=== PATIENT | male | born 1960 | race Caucasian/White ===

== ENCOUNTER 2018-12-21 12:54 | Emergency (ER) | payer OTHER ==
--- NOTE | 2018-12-21 13:18 | ED Physician Documentation ---
PD HPI SKIN - Stated complaint Stated Complaint: LFT FOOT INFECTION/SENT BY DOC - Chief complaint Chief Complaint: Ext Problem - History obtained from History obtained from: Patient - History of Present Illness Timing - onset: How many days ago (few) Timing - duration: Days (few) Timing - details: Gradual onset Location: LLE (tip of second toe.) Quality / character: Painful, Discolored (red with extension of the redness to base of the toe and dorsum of the foot.), Swelling, Draining (it did drain some day or two ago, but not since.) Associated symptoms: No: Fever, Myalgias Contributing factors: No: Recent illness Similar symptoms before: Has not had sx before Recently seen: Clinic (seen with redness at tip of toe initially, without apparent injury. Rx with Keflex and was not improved over several days. Seen yesterday again and added Bactrim. Worse today so referred to ER for further evaluation.) Review of Systems Constitutional: denies: Fever, Chills, Myalgias Neurologic: reports: Numbness (has some neuropathy of feet so not as much feeling in toes baseline.). denies: Generalized weakness, Focal weakness PD PAST MEDICAL HISTORY - Past Medical History Cardiovascular: None Respiratory: None Endocrine/Autoimmune: None - Past Surgical History Past Surgical History: No - Present Medications Home Medications: Ambulatory Orders Medication Instructions Recorded Confirmed Azithromycin [Zithromax] 250 mg PO DAILY #6 tablet 07/08/13 Mupirocin 1 applic TP TID #15 g 12/21/18 - Allergies Allergies/Adverse Reactions: Allergies Allergy/AdvReac Type Severity Reaction Status Date / Time No Known Drug Allergies Allergy Verified 07/08/13 12:25 - Living Situation Living Situation: reports: With spouse/s.o. Living Arrangement: reports: At home - Social History Does the pt smoke?: No Smoking Status: Never smoker Does the pt drink ETOH?: No Does the pt have substance abuse?: No - Immunizations Immunizations are current?: Yes - POLST Patient has POLST: No PD ED PE NORMAL - Vitals Vital signs reviewed: Yes - General General: Alert and oriented X 3, No acute distress, Well developed/nourished - Derm Derm: Normal color, Warm and dry - Extremities Extremities: Other (left 2nd toe with redness and some callous/swelling at side of tip, not really at corner of the nail. Does have thickened fungal toenail. There is redness and swelling with redness extending to base of toe and just onto dorsum of foot. ) Results - Vitals Vitals: Oxygen O2 Source Room air - Rads (name of study) left toes Radiology: Prelim report reviewed (no erosion seen. There is metalic FB just under skin in area of the infection. ) Procedures - FB removal FB location: Subcutaneous (left 2nd toe tip.) FB removal preparation: No: Local anesthesia-specify (he has less sensation and has callous in the spot, so able to pare down the skin without numbning. I did find the metallic FB and it was in area of some raw skin. No pus out so not getting a culture of it.) PD MEDICAL DECISION MAKING - ED course Complexity details: considered differential (seems skin infection, no really at nail corner. There is area of thickened skin c/w callous. Tender there with redness and some fluctuance underneath. FB seen on xray and then gotten out by debriding the area. ), d/w patient Departure - Departure Disposition: 01 Home, Self Care Clinical Impression: Toe infection, Skin foreign body Cellulitis Qualifiers: Site of cellulitis: extremity Site of cellulitis of extremity: lower extremity Laterality: left Qualified Code(s): L03.116 - Cellulitis of left lower limb Condition: Stable Record reviewed to determine appropriate education?: Yes Instructions: ED Infec Skin Cellulitis Follow-Up: Koko Garcia MD [Primary Care Provider] - Prescriptions: Mupirocin 1 applic TP TID #15 g Comments: Soak the foot and toe couple times a day and use mupirocin topical antibiotic to the area. Continue with the oral antibiotics you had been prescribed. I think the infection will improve better now with it able to drain better and with that callus in the little piece of metal out. He should see improvement over the next few days. Return if worsening over the next couple of days. Forms: Activity restrictions Discharge Date/Time: 12/21/18 16:57
[2018-12-21] MEDS ORDERED: VANCOMYCIN INJ 1,000 GM in SODIUM CHLORIDE 0.9% 500 ML IV STA (13:42)
[2018-12-21] MEDS ORDERED: VANCOMYCIN INJ 2 GM, VANCOMYCIN INJ 500 MG in SODIUM CHLORIDE 0.9% 500 ML IV STA (13:52)
[2018-12-21] MEDS ORDERED: SODIUM CHLORIDE 0.9% 500 ML IV ONE (13:52)
--- NOTE | 2018-12-21 14:12 | XRAY Report ---
Reason: 2nd toe infection for a week Procedure Date: 12/21/2018 Accession Number: [id number] / [id number] Procedure: XR - Toe(s) LT CPT Code: FULL RESULT: EXAM: LEFT TOE RADIOGRAPHY EXAM DATE: 12/21/2018 02:02 PM. CLINICAL HISTORY: Toe infection. COMPARISON: None. TECHNIQUE: 3 views. FINDINGS: Bones: No fracture or focal bony lesion. Joints: No evidence of dislocation. Soft Tissues: There is a linear opacity within the plantar medial soft tissues of the distal second digit. There is diffuse second digit soft tissue swelling. IMPRESSION: 1. No fracture or focal bony lesion. 2. Possible 0.3 cm radiopaque foreign body within the plantar medial soft tissues of the second digit. RADIA
[2018-12-21] MEDS ORDERED: MUPIROCIN 2% OINT 1 GM TOP STA (15:23)
[2018-12-21 16:47] VITALS: BP 133/91
== END 2018-12-21 16:57 | disposition home or self-care (01) ==
LOC: ED 12:54
DX: L03.032 Cellulitis of left toe (principal); L84 Corns and callosities; M79.5 Residual foreign body in soft tissue; B35.1 Tinea unguium
CPT/HCPCS: 10120; 73660; 96365; 96366; 99283; A9270; J3370

== ENCOUNTER 2019-03-05 10:23 | Outpatient (CLI) | payer OTHER | END 2019-03-05 10:24 | disposition home or self-care (01) | LOC: DI.S 10:23 | PROVIDERS: ATTEND Orthopaedic Surgery | DX: Z53.9 Procedure and treatment not carried out, unspecified reason (principal) ==

== ENCOUNTER 2019-05-20 10:49 | Outpatient (CLI) | payer OTHER | END 2019-05-20 10:50 | disposition home or self-care (01) | LOC: DI 10:49 | PROVIDERS: ATTEND Family Medicine | DX: R01.1 Cardiac murmur, unspecified (principal); I35.0 Nonrheumatic aortic (valve) stenosis; I51.7 Cardiomegaly | CPT/HCPCS: 93306 ==

== ENCOUNTER 2020-11-03 07:35 | Outpatient (CLI) | payer OTHER | END 2020-11-03 07:36 | disposition home or self-care (01) | LOC: DI 07:35 | PROVIDERS: ATTEND Family Medicine | DX: I35.0 Nonrheumatic aortic (valve) stenosis (principal) | CPT/HCPCS: 93306 ==

== ENCOUNTER 2021-04-16 14:45 | Outpatient (CLI) | payer OTHER | END 2021-04-16 23:59 | disposition home or self-care (01) | LOC: LAB.R 14:45 | PROVIDERS: ATTEND Podiatrist | DX: E11.622 Type 2 diabetes mellitus with other skin ulcer (principal) | CPT/HCPCS: 87070; 87077; 87181; 87205 ==

== ENCOUNTER 2021-07-20 08:00 | Outpatient (CLI) | payer OTHER | END 2021-07-20 23:59 | LOC: LAB 08:00 | PROVIDERS: ATTEND Podiatrist | DX: E11.622 Type 2 diabetes mellitus with other skin ulcer (principal) | CPT/HCPCS: 87070; 87181; 87205 ==

== ENCOUNTER 2021-11-20 10:46 | Emergency (ER) | payer MEDICARE ==
[2021-11-20 10:56] VITALS: BP 160/103
--- NOTE | 2021-11-20 11:42 | ED Physician Documentation ---
History of Present Illness - Stated complaint Stated Complaint: RIGHT TOE PX - Chief complaint Chief Complaint: Wound - Additonal information Additional information: 61-year-old male presents emergency department for evaluation of acute right great toe infection. He is a diabetic and has been seeing Bre Ambriz her local bushing and broach operator. He has a large callus on this toe which she has been managing. Patient woke up this morning and noted that he had significant toe swelling and erythema. He is also developed a blister on the medial aspect of the toe. Yesterday he was not feeling well and had associated fevers and chills but did not think of his foot as he has neuropathy therefore no pain. Review of Systems Constitutional: reports: Fever, Chills Eyes: reports: Reviewed and negative Throat: reports: Reviewed and negative Cardiac: reports: Reviewed and negative Respiratory: reports: Reviewed and negative GI: reports: Reviewed and negative : reports: Reviewed and negative Skin: reports: Lesions PD PAST MEDICAL HISTORY - Past Medical History Cardiovascular: Hypertension, High cholesterol Respiratory: None Endocrine/Autoimmune: Type 2 diabetes - Past Surgical History Past Surgical History: No Ortho: Other - Present Medications Home Medications: Ambulatory Orders Medication Instructions Recorded Confirmed Atorvastatin [Lipitor] 10 mg PO QPM 01/18/19 11/20/21 glipiZIDE [Glipizide] 5 mg PO BIDWM 01/18/19 11/20/21 lisinopriL [Lisinopril] 5 mg PO DAILY 01/18/19 11/20/21 metFORMIN [Glucophage] 500 mg PO BIDWM 01/18/19 11/20/21 Cefpodoxime Proxetil [Vantin] 100 mg PO Q12H #20 tablet 11/20/21 - Allergies Allergies/Adverse Reactions: Allergies Allergy/AdvReac Type Severity Reaction Status Date / Time No Known Drug Allergies Allergy Verified 11/20/21 10:50 - Social History Does the pt smoke?: No Smoking Status: Never smoker Does the pt drink ETOH?: No Does the pt have substance abuse?: No - Immunizations Immunizations are current?: Yes - POLST Patient has POLST: No PD ED PE EXPANDED - General General: Alert, No acute distress - Extremities Extremities: Right toe(s) (Right great toe is erythematous and swollen there is a fluctuant blister on the medial aspect. A large hard callus on the sole of the toe. No tenderness. Patient has neuropathy. 2+ DP pulse. Brisk cap refill) Results - Vitals Vitals: Vital Signs - 24 hr 11/20/21 10:52 Temperature 37.1 C Heart Rate 86 Respiratory 19 Rate Blood Pressure 160/103 H O2 Saturation 98 Oxygen O2 Source Room air Procedures - Abscess I&D (location) right great toe Preparation: Betadine Incision: Needle aspiration, Purulent drainage Other: Pt tolerated well, Dressing applied, Antibiotic prescribed PD MEDICAL DECISION MAKING - ED course Complexity details: reviewed results, considered differential, d/w patient ED course: 61-year-old male who is a diabetic presents the emergency department for evaluation of acute right great toe swelling erythema as well as development of a purulent blister on the medial aspect. Reports that yesterday morning his toe appeared normal. His bushing and broach operator has been managing a large callus on this toe. Culture obtained from this foot in June 2021 showed both Pseudomonas and E. coli. Both of which were sensitive to cephalosporins. Given the new cellulitis with a fluctuant abscess this was aspirated with a needle only. About 5 cc of fluid was retrieved. It is sent for culture. Based on most recent culture sensitive to cephalosporin patient will be started on Vantin. Advise close follow-up with his bushing and broach operator. Return to the ER if worsening Departure - Departure Disposition: 01 Home, Self Care Clinical Impression: Cellulitis of right toe Condition: Stable Record reviewed to determine appropriate education?: Yes Follow-Up: Bre Nelson DPM [Provider Admit Priv/Credential] - Prescriptions: Cefpodoxime Proxetil [Vantin] 100 mg PO Q12H #20 tablet Comments: Logan your great toe has certainly become infected. I did aspirate and drain as much of the fluid that I could from the toe. We are sending it for culture. Your most recent culture showed Pseudomonas and E. coli. Both of which were sensitive to a class of medication that can be taken orally. Therefore I am starting you on a medication called Vantin or Cefpodoxime. This has been sent electronically to the [facility] in [place]. You should take it twice a day for the next 10 days. I would like you to soak the foot in Betadine solution once or twice a day and then simply apply a dry gauze. It is very important you follow-up with Dr. Nelson for reevaluation of the toe infection this week. If despite the antibiotics you find that your symptoms are worsening you must return immediately to the ER.
[2021-11-20] MEDS ORDERED: DOXYCYCLINE 100 MG TABLET PO STA (12:05)
== END 2021-11-20 12:07 | disposition home or self-care (01) ==
LOC: ED 10:46
DX: L03.031 Cellulitis of right toe (principal); E11.42 Type 2 diabetes mellitus with diabetic polyneuropathy; Z79.84 Long term (current) use of oral hypoglycemic drugs
CPT/HCPCS: 10060; 87070; 87077; 87181; 87205; 99283

== ENCOUNTER 2022-01-27 08:00 | Outpatient (CLI) | payer MEDICARE | END 2022-01-27 23:59 | disposition home or self-care (01) | LOC: LAB.R 08:00 | PROVIDERS: ATTEND Podiatrist | DX: E11.622 Type 2 diabetes mellitus with other skin ulcer (principal) | CPT/HCPCS: 87070; 87205 ==

== ENCOUNTER 2022-03-23 08:00 | Outpatient (CLI) | payer MEDICARE | END 2022-03-23 23:59 | disposition home or self-care (01) | LOC: LAB.R 08:00 | PROVIDERS: ATTEND Podiatrist | DX: E11.622 Type 2 diabetes mellitus with other skin ulcer (principal) | CPT/HCPCS: 87070; 87205 ==

== ENCOUNTER 2022-03-23 10:09 | Outpatient (CLI) | payer MEDICARE ==
--- NOTE | 2022-03-23 12:32 | XRAY Report ---
PROCEDURE: Toe(s) RT INDICATIONS: CHRONIC ULCER TECHNIQUE: 3 views of the first toe(s) acquired. COMPARISON: None FINDINGS: Bones: No acute fracture or dislocation. No convincing osseous erosion. Slight deformity, likely benchroom shop optician davon of the second distal tuft. Soft tissues: No suspicious calcifications. Plantar surface wound is seen at the first toe. Vascular calcifications. IMPRESSION: No convincing erosions or other acute radiographic abnormality. Consider MRI to further evaluate depe nding on clinical concern for osteomyelitis. Reviewed by: Shubham Santamaria MD on 03/23/2022 12:31 PM PDT Approved by: Shubham Santamaria MD on 03/23/2022 12:31 PM PDT Station ID: [id number]
== END 2022-03-23 10:10 | disposition home or self-care (01) ==
LOC: DI 10:09
PROVIDERS: ATTEND Podiatrist
DX: E11.622 Type 2 diabetes mellitus with other skin ulcer (principal); L97.519 Non-pressure chronic ulcer of other part of right foot with unspecified severity
CPT/HCPCS: 87070; 87205

== ENCOUNTER 2022-11-07 09:22 | Outpatient (CLI) | payer MEDICARE ==
--- NOTE | 2022-11-07 11:53 | XRAY Report ---
PROCEDURE: Foot 3 View BILAT INDICATIONS: ACQUIRED DEFORMITY OF ANKLE AND/OR FOOT TECHNIQUE: 3 views of the right and 3 views of the left foot were acquired. COMPARISON: None FINDINGS: Bones: No fractures or dislocations. No suspicious bony lesions. Both feet have mild degenerative changes of the interphalangeal joints. Mild pes planus angulation is noted in both feet. Soft tissues: No tibiotalar joint effusion. Achilles tendon appears normal. Atherosclerotic calcif ications of the dorsalis pedis artery and posterior tibial artery. IMPRESSION: 1. No acute abnormality of the feet. 2. Mild degenerative changes of the interphalangeal joints. 3. Pes planus bilaterally. 4. Arterial atherosclerotic disease is seen in the posterior tibial and dorsalis pedis artery. Reviewed by: Donny Shane on 11/07/2022 11:51 AM PDT Approved by: Donny Shane on 11/07/2022 11:51 AM PDT Station ID: [id number]
== END 2022-11-07 09:23 | disposition home or self-care (01) ==
LOC: DI 09:22
PROVIDERS: ATTEND Internal Medicine
DX: M19.071 Primary osteoarthritis, right ankle and foot (principal); M19.072 Primary osteoarthritis, left ankle and foot; M21.42 Flat foot [pes planus] (acquired), left foot; M21.41 Flat foot [pes planus] (acquired), right foot; I70.208 Unspecified atherosclerosis of native arteries of extremities, other extremity

== ENCOUNTER 2022-11-23 08:00 | Outpatient (CLI) | payer MEDICARE | END 2022-11-23 23:59 | disposition home or self-care (01) | LOC: LAB.R 08:00 | PROVIDERS: ATTEND Podiatrist | DX: E11.622 Type 2 diabetes mellitus with other skin ulcer (principal) | CPT/HCPCS: 87070; 87077; 87181; 87205 ==